=== PATIENT | female | born 1965 | race Caucasian/White ===

== ENCOUNTER 2016-07-23 14:31 | Emergency (ER) | payer OTHER ==
[~2016-07-23] VITALS: Ht 165.1 cm; Wt 63.5 kg
[2016-07-23] MEDS ORDERED: CYCL10TA2 PO (14:54)
[2016-07-23] MEDS ORDERED: MORP15TA3 PO (14:54)
[2016-07-23] MEDS ORDERED: PREG300C PO (14:54)
[2016-07-23] MEDS ORDERED: MELO-180 PO (14:54)
[2016-07-23] MEDS ORDERED: BUPR200T PO (14:54)
[2016-07-23] MEDS ORDERED: MORP30TA3 PO (14:54)
[2016-07-23] MEDS ORDERED: OXYB5TAB7 PO (14:54)
[2016-07-23] MEDS ORDERED: ESOM40CA PO (14:54)
[2016-07-23] MEDS ORDERED: SUMA50TA3 PO (14:54)
[2016-07-23] MEDS ORDERED: ATOR40TA PO (14:55)
[2016-07-23] MEDS ORDERED: NORFLEX IM STA (15:08)
[2016-07-23] MEDS ORDERED: TORADOL IM STA (15:08)
--- NOTE | 2016-07-23 15:18 | ER.PDOC ---
General Chief Complaint: Lower Back Pain or Injury Stated Complaint: LOW BACK PAIN Time seen by MD: 15:15 Source: patient Exam Limitations: no limitations History of Present Illness Initial Comments Chronic low back pain. Patient took Morphine tablets but not better. Came to see pain Doctor but sent here for pain shot. Denies any new injury. Severity/Quality: moderate Associated Symptoms: lower back pain Prior symptoms/Treatment: Similar symptoms previous Recenly Seen Treated by Doctor Allergies: Coded Allergies: Penicillins (Verified Allergy, Severe, Hives, 07/23/16) Home Meds Reported Medications Atorvastatin 40MG (Lipitor 40MG)40 Mg Tablet1 Tab PO HS #90 TAB Ref 1 07/23/16 Sumatriptan Succinate (Imitrex)50 Mg [id number] Mg PO PRN PRN HEADACHE 07/23/16 Cyclobenzaprine Hcl (Flexeril)10 Mg Tablet1 Tab PO BID #90 TAB 07/23/16 Oxybutynin Chloride 5 Mg Tablet1 Tab PO BID #60 TAB Ref 11 07/23/16 Meloxicam 7.5 Mg Tablet1 Tab PO DAILY #30 TAB Ref 2 07/23/16 Bupropion Hcl (Bupropion Hcl Sr)200 Mg Tablet.er1 Tab PO BID #60 TAB Ref 1 07/23/16 Pregabalin (Lyrica)300 Mg Capsule1 Cap PO BID #60 CAP Ref 2 07/23/16 Esomeprazole Magnesium (Nexium)40 Mg Capsule.dr1 Cap PO DAILY #30 CAP Ref 5 07/23/16 Morphine Sulfate (Morphine Sulfate Er)30 Mg Tablet.er1 Tab PO BID #90 TAB 07/23/16 Morphine Sulfate (Morphine Sulfate Er)15 Mg Tablet.er1 Tab PO BID #60 TAB 07/23/16 Past Medical History Medical History: cancer, COPD, GERD, high cholesterol Surgical History: back, cancer surgery, cholecystectomy, hysterectomy LMP (females 10-50): hysterectomy Social History Smoking: cigarettes, less than 1 pack/day Alcohol Use: none Drug Use: none Review of Systems Constitutional: no symptoms reported EENTM: no symptoms reported Respiratory: no symptoms reported Cardiovascular: no symptoms reported Gastrointestinal: no symptoms reported Genitourinary: no symptoms reported Musculoskeletal: see HPI All Other Systems: Reviewed and Negative Physical Exam General Appearance: No Apparent Distress, WD/WN HEENT: PERRL/EOMI, Normal ENT Inspection, TMs Normal, Pharynx Normal Neck: Non-Tender, Normal Alignment Cardiovascular/Respiratory: Regular Rate, Rhythm, No M/R/G, Normal Peripheral Pulses, No JVD, Normal Breath Sounds, No Respiratory Distress Gastrointestinal: Normal Bowel Sounds, No Organomegaly, No Pulsatile Mass, Non Tender, Soft Back: Other (tenderness lower back) Extremities: No Evidence of Injury, Normal Range of Motion, Non-Tender, No Pedal Edema, Pelvis Stable Neuro/Psych: Alert, mirror inspector nml/symmetrical, mood/effect nml, No Motor/Sensory Deficits, Relexes nml Course Blood Pressure Systolic: 122 Blood Pressure Diastolic: 61 Blood Pressure Mean: 81 Departure Time of Disposition: 15:17 Disposition: 01 HOME, SELF-CARE Impression: Primary Impression: Low back pain Condition: Stable Referrals: DEBRA MALDONADO MD (PCP) PRIMARY CARE PROVIDER Additional Instructions: Continue home medications F/U with your pain Doctor. Problem Qualifiers Primary Impression: Low back pain Chronicity: chronic Back pain laterality: unspecified Sciatica presence: without sciatica Qualified Code: M54.5 - Low back pain RENÉE,SUE Santo MD Jul 23, 2016 15:18
[2016-07-23] MEDS ORDERED: TORADOL ONE (15:27)
[2016-07-23] MEDS ORDERED: NORFLEX ONE (15:28)
[2016-07-23 15:31] VITALS: BP 118/63
== END 2016-07-23 15:35 | disposition home or self-care (01) ==
LOC: ER 14:31
DX: G89.29 Other chronic pain (principal); M54.5 Low back pain; E78.00 Pure hypercholesterolemia, unspecified; J44.9 Chronic obstructive pulmonary disease, unspecified; K21.9 Gastro-esophageal reflux disease without esophagitis; F17.210 Nicotine dependence, cigarettes, uncomplicated; Z88.0 Allergy status to penicillin; Z79.899 Other long term (current) drug therapy
CPT/HCPCS: 96372 ×2; 99284; J1885; J2360